=== PATIENT | female | born 1995 | race Caucasian/White ===

== ENCOUNTER 2024-08-01 19:13 | Emergency (ER) | payer OTHER, SELFPAY ==
[2024-08-01 19:18] VITALS: BP 126/90
[2024-08-01 20:05] VITALS: BP 124/76
--- NOTE | 2024-08-01 20:06 | ED.GENMED ---
History of Present Illness
General
Chief Complaint: Musculo-Skeletal Complaint
Source: patient
Exam Limitations: none
Time Seen by Provider: 08/01/24 20:00
History of Present Illness
History of Present Illness:
Patient fell a few hours ago rolled her ankle heard a crack complaining of pain laterally. Mild pain to the left ankle but this is minimal. No other injury or complaint
Past History
Past History
ED Past Medical History: Other (IBS)
ED Past Surgical History: None
Social History
Tobacco: Vaping
Alcohol: Occasional
Drug: None
Personal: Single
Employment: Employed
Review of Systems
Review of Systems
All Other Systems: Not applicable
Phy Exam
Physical Exam
Physical Exam:
General: Nontoxic appearing in no distress
Skin: Warm and dry, no rash
Neuro: Alert, nontoxic, grossly nonfocal
Psychiatric: Good eye contact and appropriate
Musculoskeletal: Moderate swelling to the right lateral ankle. No medial tenderness or swelling. Foot nontender. Negative fifth metatarsal. Achilles intact. Calf nontender. Proximal leg unremarkable. Very minimal tenderness to the right
lateral malleolus with a chronic soft tissue density at this location. No laxity no bony tenderness no deformity. Achilles intact.
Course
Orders/Labs/Results
Orders:
Orders
08/01/24 19:17
Ankle, Right 3 view CR [CR Ankle - Right Min 3 Views *] Urgent
Comment:
Reason For Exam: ankle pain and swelling
08/01/24 20:05
Air Splint Right-Treatment ONCE
Crutches-Treatment ONCE
Ibuprofen [Motrin] 600 mg PO NOW STA
Vital Signs
Initial and Last Documented VS:
Initial Vital Signs
Temp Pulse Resp BP Pulse Ox
97.9 F 93 18 126/90 97
08/01/24 19:18 08/01/24 19:18 08/01/24 19:18 08/01/24 19:18 08/01/24 19:18
Last Documented Vital Signs
Temp Pulse Resp BP Pulse Ox
97.9 F 93 18 126/90 97
08/01/24 19:18 08/01/24 19:18 08/01/24 19:18 08/01/24 19:18 08/01/24 19:18
MDM/Problems Addressed
Differential Diagnosis Includes:
Ankle sprain right ankle. Left ankle with very minimal sprain or contusion. Offered x-ray although medically very low suspicion for bony injury. Patient does not want an x-ray of her left ankle. Air splint crutches anti-inflammatories and
orthopedic follow-up
*Radiology
Radiology exam reviewed: preliminary read by ED provider (Negative)
*Pulse Oximetry
Patient hypoxic: no
*Critical Care Note
Total Time (30-74mins, 75-104mins- exclusive of procedures): Not Applicable
ED Attending Note
-
Portions of this chart may have been created with voice recognition software.� Occasional wrong word or��sound alike� substitutions may have occurred due to the inherent limitations of voice recognition software.
Discharge Plan
Departure
Patient Disposition: Home (Routine Discharge)
Date of Disposition: 08/01/24
Time of Disposition: 20:08
Patient with high blood pressure during this ER visit?: Yes
Discharge Problem:
Right ankle sprain, Mild left ankle sprain
Instructions: Ankle sprain - ED discharge instructions, BLOOD PRESSURE
Prescriptions:
No Action
ibuprofen 600 mg tablet
600 mg PO Q8H PRN (Reason: pain) Qty: 20 0RF
Referrals:
Nicolás Rodriguez MD [Family Provider] -
Ho Mackay MD [Active] - Follow up in 5-7 days
Interventions
Interventions:
*Risk Screen - Suicide Last Done: 08/01/24 19:18
*General Assessment Last Done: 08/01/24 19:18
*Neglect/Abuse Screening Last Done: 08/01/24 19:18
*ED- Fall Risk Assessment Last Done: 08/01/24 19:18
Discharge Date and Time
Print Language: GERMAN
[2024-08-01] MEDS: MOTRIN 600 MG PO (20:12)
== END 2024-08-01 20:35 | disposition home or self-care (01) ==
LOC: EMR 19:13
PROVIDERS: EMERGENCY PHYSICIAN Emergency Medicine; FAMILY PHYSICIAN Family Medicine
DX: S93.402A Sprain of unspecified ligament of left ankle, initial encounter (principal); S93.401A Sprain of unspecified ligament of right ankle, initial encounter; X50.1XXA Overexertion from prolonged static or awkward postures, initial encounter; F17.290 Nicotine dependence, other tobacco product, uncomplicated
CPT/HCPCS: 99283; 73610